=== PATIENT | female | born 1980 | race Two or more races ===

== ENCOUNTER 2017-10-30 17:14 | Emergency (ER) | payer BC ==
[~2017-10-30] VITALS: Ht 170.2 cm; Wt 71.2 kg
[2017-10-30 17:14] VITALS: BP 110/66
== END 2017-10-30 17:40 | disposition home or self-care (01) ==
LOC: ER 17:20
DX: T18.8XXA Foreign body in other parts of alimentary tract, initial encounter (principal); F10.10 Alcohol abuse, uncomplicated; X58.XXXA Exposure to other specified factors, initial encounter; Y93.89 Activity, other specified; Y92.89 Other specified places as the place of occurrence of the external cause; Y99.8 Other external cause status
CPT/HCPCS: A4606; Z7502; Z7610